=== PATIENT | female | born 1975 | race Caucasian/White ===

== ENCOUNTER 2016-06-27 06:06 | Emergency (ER) | payer OTHER ==
[~2016-06-27] VITALS: Ht 152.4 cm; Wt 63.5 kg
[2016-06-27 06:10] VITALS: BP_SYST 135
[2016-06-27] MEDS ORDERED: NACL 0.9% 1,000 ML IV ONE (06:19)
[2016-06-27] MEDS ORDERED: KETOROLAC TROMETHAMINE 30 MG VIAL IVP ONE (06:30)
[2016-06-27] MEDS ORDERED: PANTOPRAZOLE SODIUM 40 MG/VIAL (PROTONIX) IVP ONE (06:30)
[2016-06-27] MEDS ORDERED: ONDANSETRON HCL 4 MG/2 ML VIAL IVP ONE ×2 (06:30)
[2016-06-27 06:56] LABS: BASOPHILS # (AUTO) 0.1 K/uL (0.0-0.2); BASOPHILS % (AUTO) 0.5 % (0.0-2.0); EOSINOPHILS # (AUTO) 0.3 K/uL (0.0-0.4); EOSINOPHILS % (AUTO) 2.8 % (0.0-4.0); HEMATOCRIT 38.7 % (36-48); HEMOGLOBIN 13.2 g/dL (12.0-16.0); MEAN CORPUSCULAR HEMOGLOBIN 29 pg (27-31); MEAN CORPUSCULAR HGB CONC 34 % (32-36); MEAN CORPUSCULAR VOLUME 84 fL (79.0-98.0); MONOCYTES # (AUTO) 0.4 K/uL (0.0-1.0); MONOCYTES % (AUTO) 3.6 % (1.7-9.3); NEUTROPHILS # (AUTO) 7.2 K/uL (1.8-7.7); NEUTROPHILS % (AUTO) 66.1 % (40.0-70.0); PLATELET COUNT (AUTO) 373 K/uL (130-430); RED BLOOD CELL COUNT(AUTO) 4.62 MIL/uL (4.2-6.2); RED CELL DISTRIBUTION WIDTH 13.4 % (9.0-15.0)
[2016-06-27 07:03] LABS: CALCIUM 8.3 mg/dL (8.4-11.0); CREATININE 0.63 mg/dL (0.55-1.30); POTASSIUM 3.5 mmol/L (3.5-5.1)
[2016-06-27 07:08] LABS: ALBUMIN 3.6 g/dL (3.4-4.8); TOTAL BILIRUBIN 0.3 mg/dL (0.0-1.0); TOTAL PROTEIN, SERUM 7.7 g/dL (6.4-8.3)
[2016-06-27 08:42] VITALS: BP_SYST 130
== END 2016-06-27 08:30 | disposition home or self-care (01) ==
LOC: SED 06:06
DX: K80.20 Calculus of gallbladder without cholecystitis without obstruction (principal); K80.50 Calculus of bile duct without cholangitis or cholecystitis without obstruction
CPT/HCPCS: 36415; 76700; 80053; 81025; 83690; 85025; 96361; 96374; 96375; 99285; C9113; J1885; J2405; J7030

== ENCOUNTER 2017-05-02 13:15 | Emergency (ER) | payer MEDICAID, OTHER ==
[~2017-05-02] VITALS: Ht 152.4 cm; Wt 65.8 kg
[~2017-05-02 13:15] MED LIST: MULT PO
[2017-05-02 13:20] VITALS: BP_SYST 119
[2017-05-02] MEDS ORDERED: DIPHENHYDRAMINE INJ 50 MG/ML VIAL IVP ONE (14:00)
[2017-05-02] MEDS ORDERED: MORPHINE 4 MG/ML INJ. SYRINGE IVP ONE (14:00)
[2017-05-02] MEDS ORDERED: PIPERACILLIN/TAZO 3.38 GM in NS 50 ML IV ONE (14:00)
[2017-05-02] MEDS ORDERED: PIPERACILLIN/TAZOBACTAM 3.375 GM/VIAL (ZOSYN) IV ONE (14:02)
[2017-05-02] MEDS ORDERED: MORPHINE SULFATE 10 MG/ML VIAL ONE (14:06)
[2017-05-02 14:10] LABS: BASOPHILS # (AUTO) 0.2 K/uL (0.0-0.2); BASOPHILS % (AUTO) 1.9 % (0.0-2.0); EOSINOPHILS % (AUTO) 0.2 % (0.0-4.0); HEMATOCRIT 41.6 % (36-48); HEMOGLOBIN 13.6 g/dL (12.0-16.0); LYMPHOCYTES # (AUTO) 1.3 K/uL (1.0-5.5); LYMPHOCYTES % (AUTO) 10.5 % (20.5-51.5); MEAN CORPUSCULAR HEMOGLOBIN 27 pg (27-31); MEAN CORPUSCULAR HGB CONC 33 % (32-36); MEAN CORPUSCULAR VOLUME 84 fL (79.0-98.0); MONOCYTES # (AUTO) 0.5 K/uL (0.0-1.0); MONOCYTES % (AUTO) 3.9 % (1.7-9.3); NEUTROPHILS # (AUTO) 10.5 K/uL (1.8-7.7); NEUTROPHILS % (AUTO) 83.5 % (40.0-70.0); PLATELET COUNT (AUTO) 334 K/uL (130-430); RED BLOOD CELL COUNT(AUTO) 4.96 MIL/uL (4.2-6.2); RED CELL DISTRIBUTION WIDTH 12.6 % (9.0-15.0); WHITE BLOOD COUNT (AUTO) 12.5 K/uL (4.8-10.8)
[2017-05-02 14:20] LABS: CALCIUM 9.5 mg/dL (8.4-11.0); CREATININE 0.76 mg/dL (0.55-1.30); POTASSIUM 3.5 mmol/L (3.5-5.1)
[2017-05-02 14:21] LABS: INR 1.1 (0.8-1.2); PROTHROMBIN TIME 10.7 SECS (9.5-12.5)
[2017-05-02 14:24] LABS: TOTAL BILIRUBIN 0.2 mg/dL (0.0-1.0)
[2017-05-02 14:48] LABS: BILIRUBIN,URINE NEGATIVE (NEGATIVE); BLOOD, URINE 3+ (NEGATIVE); CLARITY/URINE CLEAR (CLEAR); COLOR,URINE YELLOW (YELLOW); GLUCOSE,URINE NEGATIVE (NEGATIVE); KETONES,URINE NEGATIVE (NEGATIVE); LEUKOCYTE ESTERASE ,URINE 3+ (NEGATIVE); NITRITE, URINE NEGATIVE (NEGATIVE); PROTEIN URINE NEGATIVE (NEGATIVE); UROBILINOGEN,URINE 0.2 (0.2-1.0)
[2017-05-02 14:58] LABS: BACTERIA,URINE FEW /HPF (None Seen); MUCUS,URINE 1+ /LPF (None Seen); WBC,URINE 20-50 /HPF (0-3)
[2017-05-02] MEDS ORDERED: PHENAZOPYRIDINE HCL 100 MG TABLET PO ONE (16:00)
[2017-05-02 16:09] VITALS: BP_SYST 115
== END 2017-05-02 16:09 | disposition home or self-care (01) ==
LOC: SED 13:15
DX: N30.90 Cystitis, unspecified without hematuria (principal); Z90.49 Acquired absence of other specified parts of digestive tract
CPT/HCPCS: 36415; 71045; 74176; 76830; 76857; 80053; 81000; 81025; 83605; 83690; 85025; 85610; 87040; 87086; 93005; 96365; 96375; 99285; J1200; J2270; J2543

== ENCOUNTER 2018-10-12 21:43 | Emergency (ER) | payer MEDICAID, OTHER ==
[~2018-10-12] VITALS: Ht 152.4 cm; Wt 63.5 kg
[2018-10-12 22:13] VITALS: BP_SYST 140
--- NOTE | 2018-10-12 22:20 | NUR ---
Patient triaged and placed in waiting room. VSS and patient appears in no acute distress at this time. Accompanied by , awaiting available bed, and MD notified of need for MSE.
[2018-10-12 23:36] LABS: CALCIUM 8.7 mg/dL (8.4-11.0); CREATININE 0.61 mg/dL (0.55-1.30); POTASSIUM 3.4 mmol/L (3.5-5.1)
[2018-10-12 23:41] LABS: BASOPHILS % (AUTO) 0.5 % (0.0-2.0); EOSINOPHILS # (AUTO) 0.3 K/uL (0.0-0.4); EOSINOPHILS % (AUTO) 2.8 % (0.0-4.0); HEMATOCRIT 40.9 % (36-48); HEMOGLOBIN 13.6 g/dL (12.0-16.0); LYMPHOCYTES # (AUTO) 2.7 K/uL (1.0-5.5); LYMPHOCYTES % (AUTO) 27.2 % (20.5-51.5); MEAN CORPUSCULAR HEMOGLOBIN 29 pg (27-31); MEAN CORPUSCULAR HGB CONC 33 % (32-36); MEAN CORPUSCULAR VOLUME 87 fL (79.0-98.0); MONOCYTES # (AUTO) 0.6 K/uL (0.0-1.0); MONOCYTES % (AUTO) 6.6 % (1.7-9.3); NEUTROPHILS # (AUTO) 6.2 K/uL (1.8-7.7); NEUTROPHILS % (AUTO) 62.9 % (40.0-70.0); PLATELET COUNT (AUTO) 351 K/uL (130-430); RED BLOOD CELL COUNT(AUTO) 4.69 MIL/uL (4.2-6.2); RED CELL DISTRIBUTION WIDTH 13.7 % (9.0-15.0); WHITE BLOOD COUNT (AUTO) 9.8 K/uL (4.8-10.8)
[2018-10-12 23:47] LABS: ALBUMIN 3.5 g/dL (3.4-4.8); TOTAL BILIRUBIN 0.1 mg/dL (0.0-1.0)
--- NOTE | 2018-10-13 00:25 | NUR ---
Patient to ER bed 08 to gown for evaluation. Side rails up. Report given to MICHA Cobos.
--- NOTE | 2018-10-13 00:27 | NUR ---
ER MD Aguilar at bedside for medical evaluation.
--- NOTE | 2018-10-13 00:30 | NUR ---
Pt came to the ED for lower back pain which started yesterday. Reports she noticed "bright pink color when I wiped after I peed." Reports dysuria only in the morning. Reports she is 7 weeks pregnany A1. Pain is 3/10. Denies n/vd or fever. No other complaints/injuries noted. Will cont. to monitor.
[2018-10-13 00:39] LABS: BILIRUBIN,URINE NEGATIVE (NEGATIVE); CLARITY/URINE CLEAR (CLEAR); COLOR,URINE YELLOW (YELLOW); GLUCOSE,URINE NEGATIVE (NEGATIVE); KETONES,URINE NEGATIVE (NEGATIVE); LEUKOCYTE ESTERASE ,URINE 1+ (NEGATIVE); NITRITE, URINE NEGATIVE (NEGATIVE); PH,URINE 6.5 (5.0-8.0); PROTEIN URINE NEGATIVE (NEGATIVE); UROBILINOGEN,URINE 0.2 (0.2-1.0)
[2018-10-13 00:44] LABS: BLOOD, URINE TRACE (NEGATIVE)
[2018-10-13 00:46] LABS: BACTERIA,URINE FEW /HPF (None Seen)
[2018-10-13] MEDS ORDERED: ACETAMINOPHEN 500 MG TABLET PO ONE (01:00)
[2018-10-13] MEDS ORDERED: NITROFURANTOIN MONOHYD/M-CRYST 100 MG CAPSULE PO ONE (01:00)
--- NOTE | 2018-10-13 01:03 | NUR ---
ER Dr. Aguilar at bedside speaking to patient.
--- NOTE | 2018-10-13 01:15 | NUR ---
Pt only wanted one dose of tylenol (500 mg). Pt states "I'm not in that much pain, I only take 1000 mg of tylenol if im really in pain". Will let ER MD know. Will return extra tylenol pill. Will continue to monitor pt.
[2018-10-13 01:20] VITALS: BP_SYST 140
--- NOTE | 2018-10-13 01:20 | NUR ---
Patient given written and verbal discharge instructions and verbalizes understanding. ER MD Dr. Aguilar discussed with patient the results and treatment provided. Patient in stable condition. ID arm band removed. Rx of macrobid given. Patient educated on pain management and to follow up with [facility] in 2-3days. Pain Scale 0/10. Opportunity for questions provided and answered. Medication side effect fact sheet provided.
== END 2018-10-13 01:20 | disposition home or self-care (01) ==
LOC: SED 21:43
DX: O20.0 Threatened abortion (principal); O23.41 Unspecified infection of urinary tract in pregnancy, first trimester; Z3A.01 Less than 8 weeks gestation of pregnancy; Z90.49 Acquired absence of other specified parts of digestive tract
CPT/HCPCS: 36415; 76801; 76817; 80053; 81000-TC; 81025; 84702-TC; 85025; 86900; 86901; 87086; 99284

== ENCOUNTER → 2018-10-14 | Emergency (ER) | payer OTHER ==
[~2018-10-14] VITALS: Ht 157.5 cm; Wt 55.8 kg
[~2018-10-14] MED LIST changes: +MORPHINE 4 MG/ML INJ. SYRINGE IM ONE; +MORPHINE 4 MG/ML INJ. SYRINGE IVP ONE; +NACL 0.9% 1,000 ML IV ONE
[2018-10-14 19:15] VITALS: BP_SYST 140
--- NOTE | 2018-10-14 19:30 | NUR ---
Patient to ER bed 7 to gown for evaluation. Side rails up.
[2018-10-14 19:35] LABS: BILIRUBIN,URINE NEGATIVE (NEGATIVE); BLOOD, URINE 3+ (NEGATIVE); COLOR,URINE YELLOW (YELLOW); GLUCOSE,URINE NEGATIVE (NEGATIVE); KETONES,URINE NEGATIVE (NEGATIVE); LEUKOCYTE ESTERASE ,URINE TRACE (NEGATIVE); NITRITE, URINE NEGATIVE (NEGATIVE); PROTEIN URINE TRACE (NEGATIVE); UROBILINOGEN,URINE 0.2 (0.2-1.0)
--- NOTE | 2018-10-14 19:45 | NUR ---
Pt came to the ED who is currently 7 weeks with complaints of vaginal bleeding for 2 days. Reported that she was initially spotting and had heavy flow today, Reports soaking 1 pad. PT was recently diagnosed with a bladder infection and is currently taking macrobid. Currently, 10/10 pain. Taking tylenol with no relief. . Denies n/v/d or fever. No other complaints/injuries noted. Will cont. to monitor.
[2018-10-14 19:46] LABS: CLARITY/URINE SLIGHTLY HAZY (CLEAR)
--- NOTE | 2018-10-14 19:47 | NUR ---
bonnie Graham at bedside examining patient.
--- NOTE | 2018-10-14 19:50 | NUR ---
Pt states she is in a lot of pain, ER MD made aware.
[2018-10-14 19:54] LABS: BASOPHILS # (AUTO) 0.1 K/uL (0.0-0.2); EOSINOPHILS # (AUTO) 0.2 K/uL (0.0-0.4); EOSINOPHILS % (AUTO) 1.7 % (0.0-4.0); HEMATOCRIT 41.2 % (36-48); HEMOGLOBIN 13.7 g/dL (12.0-16.0); LYMPHOCYTES # (AUTO) 2.7 K/uL (1.0-5.5); LYMPHOCYTES % (AUTO) 28.8 % (20.5-51.5); MEAN CORPUSCULAR HEMOGLOBIN 29 pg (27-31); MEAN CORPUSCULAR HGB CONC 33 % (32-36); MEAN CORPUSCULAR VOLUME 87 fL (79.0-98.0); MONOCYTES # (AUTO) 0.7 K/uL (0.0-1.0); MONOCYTES % (AUTO) 6.9 % (1.7-9.3); NEUTROPHILS # (AUTO) 5.8 K/uL (1.8-7.7); NEUTROPHILS % (AUTO) 61.6 % (40.0-70.0); PLATELET COUNT (AUTO) 349 K/uL (130-430); RED BLOOD CELL COUNT(AUTO) 4.74 MIL/uL (4.2-6.2); RED CELL DISTRIBUTION WIDTH 13.7 % (9.0-15.0); WHITE BLOOD COUNT (AUTO) 9.4 K/uL (4.8-10.8)
[2018-10-14 19:54] LABS: BACTERIA,URINE FEW /HPF (None Seen); MUCUS,URINE 1+ /LPF (None Seen); WBC,URINE 50-80 /HPF (0-3)
--- NOTE | 2018-10-14 20:01 | NUR ---
ER MD Dr. Hong at bedside speaking to pt.
[2018-10-14 20:06] LABS: CALCIUM 8.9 mg/dL (8.4-11.0); CREATININE 0.55 mg/dL (0.55-1.30); POTASSIUM 3.6 mmol/L (3.5-5.1)
--- NOTE | 2018-10-14 20:15 | NUR ---
Dr. Hong performing pelvic exam with myself at bedside. Tolerating well. Will cont. to monitor.
--- NOTE | 2018-10-14 20:29 | NUR ---
PT went to ultrasound via wheelchair. Tolerating well. RN is chaperoning with solar fabrication technician.
[2018-10-14 20:36] LABS: ALBUMIN 3.5 g/dL (3.4-4.8); TOTAL BILIRUBIN 0.2 mg/dL (0.0-1.0)
--- NOTE | 2018-10-14 20:48 | NUR ---
Patient refusing Transvaginal ultrasound. MD notified and at bedside.
--- NOTE | 2018-10-14 20:54 | NUR ---
ER MD Dr. Hong speaking to pt. PT agrees to consent to ultrasound.
--- NOTE | 2018-10-14 20:56 | NUR ---
database software technician performing transvaginal ultrasound with RN at bedside.
--- NOTE | 2018-10-14 21:15 | NUR ---
Pt returned from Ultrasound via wheelchair. Tolerated well. Will cont. to monitor.
--- NOTE | 2018-10-14 23:06 | NUR ---
Transfer form signed and placed in chart.
--- NOTE | 2018-10-14 23:56 | NUR ---
Patient to be transferred to [facility]. Is being transferred due to higher level of care. Receiving facility has accepting physician and available space. ER physician has signed transfer form. Patient or responsible constitution party has agreed to transfer and signed form. Patient belongings inventoried and will be sent with patient. Copy of nursing notes, lab reports, EKG, Physicians Orders and X-rays to be sent with patient. Report called to Ender Ware at receiving facility. Receiving physician is Dr. Shirley. [facility] has been called for transfer. ETA is now.
[2018-10-15] VITALS: BP_SYST 146
--- NOTE | 2018-10-15 | NUR ---
Pt transferred via gurney. IV saline locked and patent. No signs of acute distress.
== END | disposition still patient (30) ==
LOC: SED 19:03
DX: O26.891 Other specified pregnancy related conditions, first trimester (principal); R10.30 Lower abdominal pain, unspecified; Z3A.01 Less than 8 weeks gestation of pregnancy
CPT/HCPCS: 36415; 76801; 76817; 80053; 81000; 81025; 84702; 85025; 87086; 96372; 96374; 99285; J2270; J7030; 76805-TC